=== PATIENT | female | born 1975 | race Two or more races ===

== ENCOUNTER → 2016-05-19 | Outpatient (CLI) | payer OTHER ==
[~2016-05-19] MED LIST: IBUP-1222 PO
[2016-05-19 14:37] LABS: HEMOGLOBIN 11.5 g/dL (11.7-16.4)
[2016-05-19 15:04] LABS: HIV 1&2 ANTIBODY SCREEN Nonreactive (Nonreactive); HIV-1 p24 ANTIGEN Nonreactive (Nonreactive)
== END | disposition home or self-care (01) ==
LOC: LAB 14:15
PROVIDERS: ATTEND Advanced Practice Midwife
DX: Z34.83 Encounter for supervision of other normal pregnancy, third trimester (principal)
CPT/HCPCS: 36415; 85025; 86592; 86703; 86762; 86787; 86850; 86900; 87077; 87086; 87186; 87340; 87899; G0435

== ENCOUNTER 2016-05-25 03:58 | Inpatient (IN) | payer OTHER ==
[~2016-05-25] VITALS: Ht 152.4 cm; Wt 77.7 kg
[2016-05-25] MEDS ORDERED: MISOPROSTOL 200 MCG TABLET ONE (04:31)
[2016-05-25] MEDS ORDERED: LIDOCAINE 1%, 20ML ONE (04:31)
[2016-05-25] MEDS ORDERED: OXYTOCIN 30U/ 0.9% NaCL 500ML 500 ML ONE ×2 (04:51→07:19)
[2016-05-25] MEDS ORDERED: OXYTOCIN 30U/ 0.9% NaCL 500ML 500 ML IV ONE (04:56)
[2016-05-25] MEDS ORDERED: NEWBORN KIT ONE (04:56)
[2016-05-25] MEDS ORDERED: FENTANYL PF 100 MCG/2ML IVPush PRN (05:00)
[2016-05-25] MEDS ORDERED: FENTANYL PF 100 MCG/2ML IV PRN (05:00)
[2016-05-25] MEDS ORDERED: ONDANSETRON 2MG/ML, 2ML IVPush PRN (05:00)
[2016-05-25] MEDS ORDERED: CALCIUM CARBONATE 500 MG TAB.CHEW PO PRN ×2 (05:00→07:30)
[2016-05-25] MEDS ORDERED: TERBUTALINE 1 MG/ML, 1ML IVPush PRN (05:00)
[2016-05-25] MEDS ORDERED: FENTANYL PF 100 MCG/2ML ONE (05:34)
[2016-05-25 05:38] LABS: HEMOGLOBIN 11.1 g/dL (11.7-16.4)
[2016-05-25] MEDS: D5%-LACTATED RINGERS 1,000 ML IV SCH ×2 (06:35→12:56)
[2016-05-25] MEDS: OXYTOCIN 30U/ 0.9% NaCL 500ML 500 ML IV SCH ×2 (07:06→11:20)
[2016-05-25] MEDS: LACTATED RINGERS 1,000 ML IV SCH ×2 (07:23→14:55)
[2016-05-25] MEDS ORDERED: DOCUSATE 100 MG CAPSULE PO PRN (07:30)
[2016-05-25] MEDS ORDERED: MISOPROSTOL 200 MCG TABLET PR PRN (07:30)
[2016-05-25] MEDS ORDERED: METHYLERGONOVINE 0.2 MG/ML IM PRN (07:30)
[2016-05-25] MEDS ORDERED: ONDANSETRON 2MG/ML, 2ML IV PRN (07:30)
[2016-05-25] MEDS ORDERED: CARBOPROST TROMETHAMINE 250 MCG/ML, 1ML IM PRN (07:30)
[2016-05-25] MEDS ORDERED: HYDROcodone/APAP 5/325 TABLET PO PRN ×2 (07:30)
[2016-05-25 09:00] VITALS: BP 128/81
[2016-05-25] MEDS ORDERED: PRENATAL VIT/IRON/FA 1 EACH TABLET PO SCH (09:00)
[2016-05-25] MEDS: IBUPROFEN 600 MG TABLET PO PRN ×2 (09:04→15:09)
[2016-05-25 12:07] VITALS: BP 110/69
[2016-05-25 14:30] VITALS: BP 100/60
[2016-05-25 15:41] VITALS: BP 108/71
[2016-05-25 15:55] LABS: HEMOGLOBIN 10.2 g/dL (11.7-16.4)
[2016-05-25 20:00] VITALS: BP 101/62
[2016-05-26 00:30] VITALS: BP 97/53
[2016-05-26] MEDS: OXYTOCIN 30U/ 0.9% NaCL 500ML 500 ML IV SCH (03:06)
[2016-05-26 07:50] VITALS: BP 103/66
[2016-05-26] MEDS ORDERED: IBUP-1222 PO (09:44)
== END 2016-05-26 10:57 | disposition home or self-care (01) | DRG 775 ==
LOC: LDOP 03:58 → LDIP 04:59 → 2NW 08:45
PROVIDERS: ADMIT Student in an Organized Health Care Education/Training Program; ATTEND Student in an Organized Health Care Education/Training Program
PROC: 10E0XZZ Delivery of Products of Conception, External Approach (ICD-10-PCS; principal; 2016-05-25)
PROC: 0KQM0ZZ Repair Perineum Muscle, Open Approach (ICD-10-PCS; 2016-05-25)
DX: O99.52 Diseases of the respiratory system complicating childbirth (principal); Z37.0 Single live birth; J45.909 Unspecified asthma, uncomplicated; O77.0 Labor and delivery complicated by meconium in amniotic fluid; Z3A.40 40 weeks gestation of pregnancy; O70.1 Second degree perineal laceration during delivery; Z90.721 Acquired absence of ovaries, unilateral
CPT/HCPCS: 36415; 85025; 86850; 86900; J2590; J7120; J7121